=== PATIENT | female | born 1995 | race Hispanic/Latino ===

== ENCOUNTER 2018-06-28 18:04 | Emergency (ER) | payer OTHER ==
[~2018-06-28] VITALS: Ht 147.3 cm; Wt 44.5 kg
--- OUTSIDE RECORDS SUMMARY | 2018-06-28 18:07 | XMS REPORT | Clinical Summary ---
Author Author [facility] Address Unknown Phone Unavailable Care Team Providers Care Cane Piler Name Role Phone Joycelyn Olsen PCP Allergies Comments Active Allergy Reactions Severity Noted Date Fosphenytoin Hives 11/29/2016 Dexamethasone Rash Low 11/29/2016 Cephalexin Rash Low 11/29/2016 Medications No known medications Active Problems Problem Noted Date Observed seizure-like activity 11/28/2016 Family History Medical History Relation Name Comments Hypertension Maternal Grandfather Hyperlipidemia Maternal Grandmother Hypertension Mother Relation Name Status Comments Maternal Grandfather Maternal Grandmother Mother Social History Date Tobacco Use Types Packs/Day Years Used Never Smoker Alcohol Use Drinks/Week oz/Week Comments No Sex Assigned at Date Recorded Not on file Industry Job Start Date Occupation Not on file Not on file Not on file Travel End Travel History Travel Start No recent travel history available. Last Filed Vital Signs Not on file Plan of Treatment Health Maintenance Due Date Last Done Comments CHLAMYDIA SCREENING 2013 MENINGOCOCCAL VACCINE (1 2013 - 2-dose series) INFLUENZA VACCINE 02/27/2018 CERVICAL CANCER SCREENING 2018 HEPATITIS B VACCINES Aged Out No longer eligible based on patient's age to complete this topic IPV VACCINES Aged Out No longer eligible based on patient's age to complete this topic Results Not on fileafter 06/27/2017 Insurance Payer Benefit Subscriber ID Type Phone Address Plan / Group [facility] xxxxxxxxx HMO/PPO THCARE CHOICE/CHO ICE + Advance Directives Patient has advance care planning documents on file. For more information, govind gastelum contact: Tyrese West [address] [place] [address]
--- OUTSIDE RECORDS SUMMARY | 2018-06-28 18:07 | XMS REPORT | Summary of Care ---
Author Author [facility] Organization [facility] Address Unknown Phone Unavailable Encounter [facility](CHELSEA) [phone] Date(s): 09/10/16 - 09/11/[address] [facility] [address] [place] [address]- Discharge Diagnosis: Seizure disorder Discharge Disposition: Home or Self Care Attending Physician: Evert Redd DO Vital Signs 1 2 3 Most recent to oldest [Reference Range]: 160.02 cm (09/10/16 10:45 PM) Height 98.0 DegF (09/11/16 2:00 AM) 98.9 DegF (09/10/16 10:45 PM) Temperature Oral [96.4-99.1 DegF] 98/55 mmHg (09/11/16 2:00 AM) 116/61 mmHg (09/11/16 1:00 AM) 129/79 mmHg (09/11/16 12:00 AM) Blood Pressure [90-140/60-90 mmHg] 17 BRMIN (09/11/16 2:00 AM) 20 BRMIN (09/11/16 1:00 AM) 14 BRMIN (09/11/16 12:00 AM) Respiratory Rate [14-20 BRMIN] 118 bpm *HI* (09/10/16 10:45 PM) Peripheral Pulse Rate [60-100 bpm] 54.545 kg (09/10/16 10:45 PM) Weight 21.3 m2 (09/10/16 10:45 PM) Body Mass Index Problem List Condition Effective Dates Status Health Status Informant Anxiety(Confirmed) Resolved Headache(Confirmed) 2013 Resolved Seizure(Confirmed) 08/10/16 Active Allergies, Adverse Reactions, Alerts Substance Reaction Severity Status Keflex Rash Active Medications Ativan 1 mg, 0.5 mL, Route: IVP, Drug form: INJ, ONCE, Dosing Weight 54.545, kg, Priori ty: STAT, Start date: 09/10/16 23:09:00 DIRECTOR OF PRODUCT DEVELOPMENT, Stop date: 09/10/16 23:09:00 DIRECTOR OF PRODUCT DEVELOPMENT Notes: (Same as: Ativan) Start Date: 09/10/16 Stop Date: 09/10/16 Status: Completed Saline Flush 0.9% 10 mL, Route: IVP, Drug Form: INJ, Dosing Weight 53.136, kg, PRN, PRN Line Flush , Start date: 09/10/16 23:08:00 DIRECTOR OF PRODUCT DEVELOPMENT, Duration: 30 day, Stop date: 10/11/16 0:07: 00 CDT Notes: (Same as: BD Posiflush) Start Date: 09/10/16 Stop Date: 09/11/16 Status: Discontinued Sodium Chloride 0.9% (Bolus) IV 1,000 mL, 1,000 ml/hr, Infuse Over: 1 hr, Route: IV, 1,000, Drug form: INJ, ONCE , Priority: STAT, Dosing Weight 53.136 kg, Start date: 09/10/16 23:08:00 DIRECTOR OF PRODUCT DEVELOPMENT, Du ration: 1 doses or times, Stop date: 09/10/16 23:08:00 DIRECTOR OF PRODUCT DEVELOPMENT Start Date: 09/10/16 Stop Date: 09/10/16 Status: Completed Results ELECTROLYTES Most recent to 1 oldest [Reference Range]: Sodium Lvl [135-145 140 mEq/L mEq/L] (09/10/16 11:16 PM) Potassium Lvl 3.4 mEq/L [3.5-5.1 mEq/L] *LOW* (09/10/16 11:16 PM) Chloride Lvl [95-109 105 mEq/L mEq/L] (09/10/16 11:16 PM) CO2 [24-32 mEq/L] 25 mEq/L (09/10/16 11:16 PM) AGAP [10.0-20.0 13.4 mEq/L mEq/L] (09/10/16 11:16 PM) CHEM PANEL Most recent to 1 oldest [Reference Range]: Creatinine Lvl 0.63 mg/dL [0.50-1.40 mg/dL] (09/10/16 11:16 PM) eGFR 130 mL/min/1.73m2 1 *NA* (09/10/1616 PM) BUN [7-22 mg/dL] 13 mg/dL (09/10/1616 PM) B/C Ratio [6-25] 21 (09/10/1616 PM) Glucose Lvl [70-99 101 mg/dL mg/dL] *HI* (09/10/16:16 PM) Total Protein 6.8 g/dL [6.4-8.4 g/dL] (09/10/16 PM) Albumin Lvl [3.5-5.0 3.5 g/dL g/dL] (09/10/1616 PM) Globulin [2.7-4.2 3.3 g/dL g/dL] (09/10/16 PM) A/G Ratio [0.7-1.6] 1.1 (09/10/16 PM) Calcium Lvl 8.6 mg/dL [8.5-10.5 mg/dL] (09/10/16 PM) ALT [0-65 unit/L] 17 unit/L (09/10/16 PM) AST [0-37 unit/L] 16 unit/L (09/10/16 PM) Alk Phos [39-136 65 unit/L unit/L] (09/10/1616 PM) Bili Total [0.2-1.3 0.2 mg/dL mg/dL] (09/10/16:16 PM) Ammonia [<=45.0 30.0 uMol/L uMol/L] (09/10/1616 PM) 1Result Comment: The eGFR is calculated using the CKD-EPI formula. In most young, healthy individuals the eGFR will be >90 mL/min/1.73m2. The eGFR declines with age. An eGFR of 60-89 may be normal in some populations, particularly the elderly, for whom the CKD-EPI formula has not been extensively validated. Use of the eGFR is not recommended in the following populations: Individuals with unstable creatinine concentrations, including patients and those with serious co-morbid conditions. Patients with extremes in muscle mass or diet. The data above are obtained from the National Kidney Disease Education Program ( NKDEP) which additionally recommends that when the eGFR is used in patients with extremes of body mass index for purposes of drug dosing, the eGFR should be mul tiplied by the estimated BMI. CARDIAC ENZYMES Most recent to 1 oldest [Reference Range]: Total CK [12-191 102 unit/L unit/L] (09/10/16 11:16 PM) TOXICOLOGY Most recent to 1 oldest [Reference Range]: Acetaminoph Lvl <2 ug/ml [10-20 ug/ml] *LOW* (09/10/16 11:16 PM) Carbamaz Lvl <0.5 ug/ml [4.0-12.0 ug/ml] *LOW* (09/10/16 11:16 PM) Phenytoin Total <0.4 ug/ml [10.0-20.0 ug/ml] *LOW* (09/10/16 11:16 PM) Valproic Acid Lvl <3 ug/ml [50-100 ug/ml] *LOW* (09/10/16:16 PM) Salicylate Lvl <1.7 mg/dL [0.0-30.0 mg/dL] (09/10/16 11:16 PM) Etoh (%) <.003 % *NA* (09/10/16 11:16 PM) Ethanol Lvl <3 mg/dL *NA* (09/10/16:16 PM) ENDOCRINOLOGY Most recent to 1 oldest [Reference Range]: S Preg [Negative] Negative *NA* (09/10/16 11:16 PM) HEMATOLOGY Most recent to 1 oldest [Reference Range]: WBC [3.7-10.4 K/CMM] 5.5 K/CMM (09/10/16 11:16 PM) RBC [4.20-5.40 4.06 M/CMM M/CMM] *LOW* (09/10/16 11:16 PM) Hgb [12.0-16.0 g/dL] 11.9 g/dL *LOW* (09/10/16 11:16 PM) Hct [36.0-48.0 %] 34.0 % *LOW* (09/10/16 11:16 PM) MCV [80.0-98.0 fL] 83.7 fL (09/10/16 11:16 PM) MCH [27.0-31.0 pg] 29.3 pg (09/10/16 11:16 PM) MCHC [32.0-36.0 35.0 g/dL g/dL] (09/10/16 11:16 PM) RDW [11.5-14.5 %] 12.8 % (09/10/16 11:16 PM) Platelet [133-450 276 K/CMM K/CMM] (09/10/16 11:16 PM) MPV [7.4-10.4 fL] 7.2 fL *LOW* (09/10/16 11:16 PM) Segs [45.0-75.0 %] 48.0 % (09/10/16 11:16 PM) Lymphocytes 34.1 % [20.0-40.0 %] (09/10/16 11:16 PM) Monocytes [2.0-12.0 12.2 % %] *HI* (09/10/16:16 PM) Eosinophils [0.0-4.0 5.0 % %] *HI* (09/10/16 11:16 PM) Basophils [0.0-1.0 0.7 % %] (09/10/16 11:16 PM) Segs-Bands # 2.7 K/CMM [1.5-8.1 K/CMM] (09/10/16 11:16 PM) Lymphocytes # 1.9 K/CMM [1.0-5.5 K/CMM] (09/10/16 11:16 PM) Monocytes # [0.0-0.8 0.7 K/CMM K/CMM] (09/10/16 11:16 PM) Eosinophils # 0.3 K/CMM [0.0-0.5 K/CMM] (09/10/16 11:16 PM) Immunizations Not Given Vaccine Date Status Refusal Reason influenza virus vaccine, inactivated1 08/12/16 Not Given Patient Refuses 1Result Comment: pt stated does not want to be stuck Procedures Procedure Date Related Diagnosis Body Site Tonsillectomy 1999 Social History Social History Type Response Substance Abuse Use: None. Alcohol Current, Frequency: 1-2 times per year. 1.00 Drinks/Episode maximum.1 Smoking Status Never smoker; Exposure to Tobacco Smoke None; Cigarette Smoking Last 365 Days No; Reg Smoking Cessation Counseling No 1only special events (weddings, etc) Assessment and Plan No data available for this section
--- OUTSIDE RECORDS SUMMARY | 2018-06-28 18:07 | XMS REPORT | Continuity of Care Document ---
Author Author Jignesh enriquez [facility] [place] Interface Address Unknown Phone Unavailable Problems Problem Status Onset Date Classification Date Reported Comments Source Tuberculosis screening 05/09/2018 Diagnosis 05/09/2018 [facility] Tuberculosis Screening 05/09/2018 Problem 05/09/2018 [facility] UNCONTROLLED SEIZURES Active 05/07/2018 [facility] Acute bronchitis 04/29/2018 Diagnosis 05/09/2018 [facility] Adult health examination 01/19/2018 Diagnosis 01/19/2018 [facility] Urinary symptoms 12/10/2017 Diagnosis 12/10/2017 [facility] Urinary Symptoms 12/10/2017 Problem 04/29/2018 [facility] High antibody titer 11/14/2017 Diagnosis 12/10/2017 [facility] Acute bronchitis due to other specified organisms 11/02/2017 01/31/2018 [facility] J20.8 Active 10/25/2017 [facility] Encounter for supervision of normal , unspecified, first trimester 08/16/2017 11/16/2017 [facility] DX: 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, BOTH Active 06/05/2017 [facility] Discharge Diagnosis: Numbness and tingling 04/02/2017 04/05/2017 [facility] Discharge Diagnosis: Blurry vision, bilateral 04/02/2017 04/05/2017 [facility] EYE PAIN/ NECK PAIN Active 04/01/2017 [facility] R55 Active 01/02/2017 [facility] Discharge Diagnosis: Seizure disorder 09/11/2016 09/14/2016 [facility] SEIZURE Active 09/10/2016 [facility] Seizure Active 08/10/2016 Problem 12/07/2017 [facility], [facility] Seizure Active 08/10/2016 Problem 01/31/2018 [facility] Seizure Active 08/10/2016 Problem 11/16/2017 [facility], [facility] Headache Resolved 07/30/2013 Problem 12/07/2017 [facility], [facility] Headache Resolved 07/30/2013 Problem 01/31/2018 [facility] Headache Resolved 07/30/2013 Problem 11/16/2017 [facility], [facility] Anxiety Resolved Problem 12/07/2017 [facility], [facility] Anxiety Resolved Problem 01/31/2018 [facility] Anxiety Resolved Problem 11/16/2017 [facility], [facility] Migraine, unspecified, not intractable, without status migrainosus 12/07/2017 [facility] Cerebral cysts 12/07/2017 [facility] Unspecified convulsions 12/07/2017 [facility] Medications Medication Details Route Status Patient Instructions Ordering Provider Order Date Source Ibuprofen 400 mg, 1 tab, Route: PO, Drug form: TAB, ONCE, Dosing Weight 52.273, kg, Priority: STAT, Start date: 04/01/17 23:40:00 CDT, Stop date: 04/01/17 23:40:00 CDTNotes: (Same as: Motrin) "Do Not Crush" Give with food. No Longer Active 04/02/2017 [facility] Ativan 1 mg, 0.5 mL, Route: IVP, Drug form: INJ, ONCE, Dosing Weight 54.545, kg, Priority: STAT, Start date: 09/10/16 23:09:00 ENGAGEMENT EXECUTIVE, Stop date: 09/10/16 23:09:00 CSTNotes: (Same as: Ativan) Inactive 09/11/2016 [facility] Saline Flush 0.9% 10 mL, Route: IVP, Drug Form: INJ, Dosing Weight 53.136, kg, PRN, PRN Line Flush, Start date: 09/10/16 23:08:00 ENGAGEMENT EXECUTIVE, Duration: 30 day, Stop date: 10/11/16 0:07:00 CDTNotes: (Same as: BD Posiflush) No Longer Active 09/11/2016 [facility] Sodium Chloride 0.154 MEQ/ML Injectable Solution 1,000 mL, 1,000 ml/hr, Infuse Over: 1 hr, Route: IV, 1,000, Drug form: INJ, ONCE, Priority: STAT, Dosing Weight 53.136 kg, Start date: 09/10/16 23:08:00 ENGAGEMENT EXECUTIVE, Duration: 1 doses or times, Stop date: 09/10/16 23:08:00 ENGAGEMENT EXECUTIVE Inactive 09/11/2016 [facility] Active [facility] Fludrocortisone 0.1 MG Oral Tablet fludrocortisone 0.1 mg tablet Take 1 tablet twice a day by oral route. Active [facility] Levetiracetam 250 MG Oral Tablet levetiracetam 250 mg tablet Active [facility] NITROFURANTOIN, MACROCRYSTALS 25 MG / Nitrofurantoin, Monohydrate 75 MG Oral Capsule [Macrobid] Macrobid 100 mg capsule Take 1 capsule every 12 hours by oral route as directed for 5 days. Active [facility] Etonogestrel 68 MG Drug Implant [Nexplanon] Nexplanon 68 mg subdermal implant Active [facility] 24 HR Propranolol Hydrochloride 60 MG Extended Release Oral Capsule propranolol ER 60 mg capsule,24 hr,extended release TK 1 C PO D Active [facility] Azithromycin 250 MG Oral Tablet azithromycin 250 mg tablet TAKE 2 TABLETS (500 MG) BY ORAL ROUTE ONCE DAILY FOR 1 DAY THEN 1 TABLET (250 MG) BY ORAL ROUTE ONCE DAILY FOR 4 DAYS Active [facility] Brompheniramine Maleate 0.4 MG/ML / Dextromethorphan Hydrobromide 2 MG/ML / Pseudoephedrine Hydrochloride 6 MG/ML Oral Solution [Bromfed DM] Bromfed DM 2 mg-30 mg-10 mg/5 mL syrup Take 10 mL every 6 hours by oral route as needed. Active [facility] [id number] 0.3 ML Epinephrine 1 MG/ML Auto-Injector epinephrine 0.3 mg/0.3 mL injection, auto-injector Active [facility] norethindrone 1 mg-e. estradiol 20 mcg (24)-iron 75 mg (4) chew tablet norethindrone 1 mg-e. estradiol 20 mcg (24)-iron 75 mg (4) chew tablet GLASS TECHNICIAN/INSTALLER 1 T PO QD Active [facility] Ondansetron 4 MG Oral Tablet ondansetron HCl 4 mg tablet Active [facility] Prednisone 20 MG Oral Tablet prednisone 20 mg tablet Take 1 tablet twice a day by oral route with meals for 5 days. Active [facility] Tamsulosin hydrochloride 0.4 MG Oral Capsule tamsulosin 0.4 mg capsule Active [facility] tramadol hydrochloride 50 MG Oral Tablet tramadol 50 mg tablet Active [facility] Brompheniramine Maleate 0.4 MG/ML / Dextromethorphan Hydrobromide 2 MG/ML / Pseudoephedrine Hydrochloride 6 MG/ML Oral Solution [id number] 2 mg-30 mg-10 mg/5 mL syrup Take 10 mL every 6 hours by oral route as needed. Active [facility] Levetiracetam 750 MG Oral Tablet levetiracetam 750 mg tablet Active [facility] Purified Protein Derivative of Tuberculin 50 UNT/ML Injectable Solution [Tubersol] Tubersol 5 tub. unit/0.1 mL intradermal injection solution Inject 0.1 mL by intradermal route. Active [facility] Allergies, Adverse Reactions, Alerts Substance Category Reaction Severity Reaction type Status Date Reported Comments Source Decadron Rash Severe Allergy to substance 01/19/2018 [facility] Keflex Assertion Rash Drug allergy Active [facility] dexamethasone Assertion Drug allergy Active [facility] Immunizations Immunization Date Given Site Status Last Updated Comments Source influenza, unspecified formulation 10/28/2017 [facility], inactivated<sup>1</sup> 08/12/2016 Not Given [facility], [facility] [place] influenza virus vaccine, inactivated<sup>1</sup> 08/12/2016 Not Given [facility] influenza virus vaccine, inactivated<sup>1</sup> 08/12/2016 Not Given [facility] meningococcal, unspecified formulation 07/30/2015 completed [facility] Tdap 07/30/2009 completed [facility] Results Order Name Results Value Reference Range Date Interpretation Comments Source Influenza A negative 05/09/2018 [facility] Influenza B negative 05/09/2018 [facility] Chest 2 views DX Chest 2 views DX EXAM: XR CHEST 2 VIEWS DATE: 05/07/2018 9:01 PM CDT INDICATION: Follow-up previous chest x-ray COMPARISON: Chest x-ray on 05/07/2018 TECHNIQUE: PA and lateral chest radiographs. Exam quality limited by patient position/inability to move. FINDINGS: Lines, tubes and hardware: None. Lungs and pleura: The lungs are clear. No pleural effusion or pneumothorax. Heart and mediastinum: The heart is normal for technique. The mediastinal contours are normal. Pulmonary vascularity is normal. Bones: No acute abnormality. IMPRESSION: 1. The heart size is normal for technique. 2. No acute cardiopulmonary abnormality. 05/07/2018 - - This report was dictated by a Transmission Superintendent/Fellow. I have personally reviewed the images as well as the Resident's interpretation and agree with the findings. Read by: Sunshine Felipe MD Resident: Sunshine Felipe MD Dictated Date/time: 05/08/18 09:29 Electronically Signed by: Antonia Berrios MD 05/08/18 11:16 FINAL REPORT [facility] Chest 1view DX Chest 1view DX EXAM: XR CHEST 1 VIEW DATE: 05/07/2018 6:42 PM CDT INDICATION: - eval for infxn COMPARISON: 10/25/2017 TECHNIQUE: AP chest FINDINGS: Low lung volumes. Vascular crowding and interstitial prominence is likely due to low lung volumes. No pulmonary or pleural-based abnormality is identified. The heart size is spuriously enlarged due to low lung volumes. No acute bony abnormality is identified. IMPRESSION: 1. No focal consolidation or pneumothorax. 2. Lower lung volumes can result in spurious enlargement of the heart with interstitial and vascular prominence. PA and lateral views are recommended when feasible. 05/07/2018 - - Read by: Cipriano Mancia MD Dictated Date/time: 05/07/18 20:48 Electronically Signed by: Cipriano Mancia MD 05/07/18 20:50 FINAL REPORT [facility] Influenza A negative 04/29/2018 [facility] Influenza B negative 04/29/2018 [facility] Urinalysis macro (dipstick) panel - Urine COLOR : Yellow 12/10/2017 [facility] Urinalysis macro (dipstick) panel - Urine CLARITY : Clear 12/10/2017 [facility] Urinalysis macro (dipstick) panel - Urine LEUKOCYTES : Negative 12/10/2017 [facility] Urinalysis macro (dipstick) panel - Urine NITRITES : Negative 12/10/2017 [facility] Urinalysis macro (dipstick) panel - Urine UROBILINOGEN : Normal 12/10/2017 [facility] Urinalysis macro (dipstick) panel - Urine PROTEIN : Negative 12/10/2017 [facility] Urinalysis macro (dipstick) panel - Urine pH : 5.5 12/10/2017 [facility] Urinalysis macro (dipstick) panel - Urine BLOOD : Negative 12/10/2017 [facility] Urinalysis macro (dipstick) panel - Urine SPECIFIC GRAVITY : 1.020 12/10/2017 [facility] Urinalysis macro (dipstick) panel - Urine KETONES : Negative 12/10/2017 [facility] Urinalysis macro (dipstick) panel - Urine BILIRUBIN : Negative 12/10/2017 [facility] Urinalysis macro (dipstick) panel - Urine GLUCOSE Negative 12/10/2017 [facility] Brain w/wo contrast MRI Brain w/wo contrast MRI Exam: MRI brain without and with contrast. INDICATION: Headache, migraine, atypical seizure, brain cyst. COMPARISON: 06/27/2017. TECHNIQUE: Multiecho multiplanar MR sequences of the brain are obtained pre and post administration of 10 mL Dotarem. Discussion: No restricted diffusion. Stable focus of T2 FLAIR hyperintense signal extending from the right middle frontal gyrus to the right lateral ventricle. Architectural distortion of the gaviria-white interface of the associated right frontal lobe is evident, unchanged. No new signal changes are identified in the brain parenchyma. Hippocampal formations are normal in size, signal and contour. Arachnoid cyst in the left posterior fossa causing mild mass effect upon the cisternal segments of the left 7th and 8th cranial nerves is unchanged. No abnormal enhancement of the brain parenchyma or leptomeninges is detected. IMPRESSION: Signal abnormality in the right frontal white matter extending to the overlying cortex is unchanged without enhancement. Findings favor focal dysplasia. Stable arachnoid cyst in the left posterior fossa. 11/28/2017 - - Read by: Nicki Cid MD Dictated Date/time: 11/29/17 07:35 Electronically Signed by: Nicki Cid MD 11/29/17 07:56 FINAL REPORT [facility] Hepatitis C virus Ab Signal/Cutoff in Serum or Plasma by Immunoassay Hepatitis C virus Ab Signal/Cutoff in Serum or Plasma by Immunoassay 0.1 s/co_ratio 0.0 - 0.9 11/15/2017 [facility] Chest 2 views DX Chest 2 views DX Clinical Indication: Shortness of breath , hypoxia Comparison: 09/10/2016 FINDINGS: PA and lateral views of the chest are performed. Heart size is within normal limits. Mediastinal contours are unremarkable. Lungs are clear without infiltrate or mass. No pleural effusion or pneumothorax. No acute osseous abnormality. IMPRESSION: 1. No radiographic evidence for acute process in the chest. SL: [id number] 10/25/2017 - - Read by: Asa Beebe MD Dictated Date/time: 10/25/17 16:58 Electronically Signed by: Asa Beebe MD 10/25/17 16:59 FINAL REPORT [facility] Preg < 14wks Single gest w Transvag US Preg < 14wks Single gest w Transvag US EXAM: US PELVIS TRANSABDOMINAL EXAM: US PELVIS TRANSVAGINAL DATE: 08/10/2017 2:09 PM ENGAGEMENT EXECUTIVE INDICATION: - O26.899 Other specified related conditions, unspecified trimester,Z34.90 Encounter for supervision of normal , unspecified, unspecified trimester,. Abdominal cramping and vaginal discharge for the past one week. History of endometriosis with laparoscopy. ADDITIONAL INFORMATION: LMP: 06/29/2017; : Yes. COMPARISON: None. TECHNIQUE: Multiplanar grayscale and color Doppler ultrasound of the pelvis were obtained transabdominally through a distended urinary bladder followed by transvaginal examination postvoid. FINDINGS: Uterus: Orientation: Anteverted Size: 7.1 x 5.1 x 5.8 cm Masses: None. Cervix: Closed. Gestation: Single. Last menstrual period of 06/29/2017 corresponds to 6 weeks 0 days. Mean gestational sac diameter: 0.60 cm corresponds to 5 weeks 1 days. [place]-rump length (CRL): No pole visualized. Yolk sac: None Subchorionic hemorrhage: None. Right ovary: Size: 3.5 x 2.8 x 2.8 cm Cysts: Within the inferior portion of the right ovary, there is a complex cystic 2.5 x 1.9 x 2.1 lesion containing hypoechoic components and a small central anechoic and more hypoechoic component. Complex free fluid with scattered speckled echoes within it is seen adjacent to this lesion. No internal vascularity or "ring of fire" is seen. Masses: None. Left ovary: Size: 3.0 x 1.6 x 1.8 cm Cysts: None. Masses: None. Free fluid: Small amount simple free fluid in the retrouterine cul-de-sac. Mildly complex free fluid adjacent to the right ovarian lesion described above.. Other findings: None. IMPRESSION: 1. Single intrauterine suspected gestational sac with AUA of 5 weeks 1 days based on mean sac diameter. 2. Dates are minimally discordant with EGA by LMP. 3. Complex cystic lesion in the right ovary with adjacent mildly complex free fluid. Most likely, this lesion represents a hemorrhagic ovarian cyst, including the possibility of a hemorrhagic corpus luteum cyst which is slightly atypical in appearance. Less likely, this could represent an ectopic . 4. Small amount of complex fluid adjacent to the left ovarian lesion, likely small amount of hemoperitoneum either from rupture of a hemorrhagic cyst or, less likely, from bleeding of a small ovarian ectopic . Recommendation: Urgent COMMERCIAL ADMINISTRATOR consultation/follow-up. Serial ultrasounds and beta hCG should be performed to exclude the possibility of ectopic and to ensure a normal viable intrauterine . Findings were discussed with LEOBARDO Carreno, by telephone on 08/10/2017 at 1500 hours. The patient will return to her office for further evaluation and for immediate referral to the patient's molding line assistant for further evaluation and treatment. The patient was provided a copy of the imaging exam on disc as well. Reference: Delia PM et al. Diagnostic Criteria for Nonviable Early in the First Trimester. N Engl J Med 2013; 369: 1443-51 08/10/2017 - - Read by: Anant Malik MD Dictated Date/time: 08/10/17 15:07 Electronically Signed by: Anant Malik MD 08/10/17 15:16 FINAL REPORT [facility] eGFR 132 mL/min/1.73m2 06/27/2017 Result Comment: The eGFR is calculated using the [...] from the National Kidney Disease Education Program (NKDEP) which additionally recommends that when the eGFR is used in patients with extremes of body mass index for purposes of drug dosing, the eGFR should be multiplied by the estimated BMI. [facility] Creatinine 0.6 mg/dL 0.5 - 1.4 06/27/2017 [facility] Brain w/wo contrast MRI Brain w/wo contrast MRI Addendum: This study was reviewed and findings discussed with Dr. Nebwy. There is a 11 x 11 mm subtle T2 and FLAIR hyperintense signal abnormality in the right frontal subcortical white matter. The abnormality has a triangular configuration with the base at the gaviria-white junction and apex at the surface of the lateral ventricles. There is slight blunting of the gaviria-white interface seen on axial FLAIR image 18. 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 There is a 13 x 9 mm arachnoid cyst in the left CP angle without change compared to study from 2016. Patient Name: MISHA ALICIA : 1995; Age: 22 years y/o Female MR: [id number] Study: Brain w/wo contrast MRI 06/27/2017 4:19 PM ENGAGEMENT EXECUTIVE Ordering Physician: Margo Newby MD Clinical Indication: Disorder of the autonomic nervous system. Anoxic seizures. Patient currently experiencing complete left sided numbness. Last seizure 2 weeks ago. 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 Multiple previous MRI, CT.; Comparison: None TECHNIQUE: Multiplanar pre- and post-gadolinium contrast-enhanced MRI of the brain is performed. Contrast: 11 cc of gadolinium was administered. FINDINGS: The brain parenchyma is unremarkable. There is no evidence of acute intracranial hemorrhage, acute or subacute infarct, mass, focal edema, midline shift or extra-axial fluid collection. The ventricles and basilar cisterns are unremarkable. There is no abnormal meningeal or parenchymal enhancement. The craniocervical junction and midline structures are unremarkable. The central intracranial flow voids are maintained. Mild mucosal thickening is seen in the maxillary sinuses. IMPRESSION: 1. No evidence of acute intracranial process. 2. Mild mucosal thickening is seen in the maxillary sinuses. 06/27/2017 - - Read by: Aby Galeana Dictated Date/time: 08/16/17 10:32 Electronically Signed by: Aby Galeana 08/16/17 10:48 FINAL REPORT - - Read by: Aby Galeana Dictated Date/time: 06/28/17 08:51 Electronically Signed by: Aby Galeana 06/28/17 09:13 FINAL REPORT [facility] Brain wo contrast MRA Brain wo contrast MRA Brain wo contrast MRA CLINICAL HX: Tech:Jc Gregorio - Unqualified vision loss. Anoxic seizures. Patient currently experiencing complete left sided numbness. Last seizure 2 weeks ago. 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 Multiple previous MRI, CT.; COMPARISON: 08/14/2016 TECHNIQUE: 3-D [id number] images of the k[place] of [place] were performed. Images were reformatted in the sagittal and coronal projections. FINDINGS: The petrous, cavernous, and supraclinoid portions of the carotids bilaterally demonstrate normal signal. The A1, A2, M1 and M2 segments of the anterior and middle cerebral arteries do not demonstrate any focal loss of signal to suggest any significant stenosis. Right P-comm is noted. No gross aneurysm is visualized in the anterior circulation. Both vertebral arteries, basilar artery, RELATIONS DIRECTOR, and SCA demonstrate normal signal. Both PICA are well-visualized and demonstrate normal morphology. No gross aneurysm is identified in the posterior circulation. IMPRESSION: No significant abnormality is noted on the MRA of kiana of [place]. SL: [id number] 06/27/2017 - - Read by: Lawson Daly MD Dictated Date/time: 06/28/17 07:20 Electronically Signed by: Lawson Daly MD 06/28/17 07:28 FINAL REPORT [facility] ELECTROLYTES AGAP 13.2 meq/L 10.0 - 20.0 04/02/2017 [facility] ELECTROLYTES eGFR 133 mL/min/1.73m2 04/02/2017 Result Comment: The eGFR is calculated using the [...] from the National Kidney Disease Education Program (NKDEP) which additionally recommends that when the eGFR is used in patients with extremes of body mass index for purposes of drug dosing, the eGFR should be multiplied by the estimated BMI. [facility] ELECTROLYTES Glucose Lvl 94 mg/dL 70 - 99 04/02/2017 [facility] ELECTROLYTES Creatinine Lvl 0.58 mg/dL 0.50 - 1.40 04/02/2017 [facility] ELECTROLYTES BUN 22 mg/dL 7 - 22 04/02/2017 [facility] ELECTROLYTES Calcium Lvl 9.3 mg/dL 8.5 - 10.5 04/02/2017 [facility] ELECTROLYTES CO2 25 meq/L 24 - 32 04/02/2017 [facility] ELECTROLYTES Sodium Lvl 140 meq/L 135 - 145 04/02/2017 [facility] ELECTROLYTES Potassium Lvl 4.2 meq/L 3.5 - 5.1 04/02/2017 [facility] ELECTROLYTES Chloride Lvl 106 meq/L 95 - 109 04/02/2017 [facility] HEMATOLOGY Lymphocytes 34.2 % 20.0 - 40.0 04/02/2017 [facility] HEMATOLOGY Segs 51.4 % 45.0 - 75.0 04/02/2017 [facility] HEMATOLOGY Lymphocytes # 3.0 K/CMM 1.0 - 5.5 04/02/2017 [facility] HEMATOLOGY Monocytes # 0.8 K/CMM 0.0 - 0.8 04/02/2017 [facility] HEMATOLOGY Eosinophils # 0.4 K/CMM 0.0 - 0.5 04/02/2017 [facility] HEMATOLOGY Eosinophils 4.8 % 0.0 - 4.0 04/02/2017 [facility] HEMATOLOGY Monocytes 8.8 % 2.0 - 12.0 04/02/2017 [facility] HEMATOLOGY Basophils 0.8 % 0.0 - 1.0 04/02/2017 [facility] HEMATOLOGY Segs-Bands # 4.5 K/CMM 1.5 - 8.1 04/02/2017 [facility] HEMATOLOGY Basophils # 0.1 K/CMM 0.0 - 0.2 04/02/2017 [facility] HEMATOLOGY WBC 8.8 K/CMM 3.7 - 10.4 04/02/2017 [facility] HEMATOLOGY RBC 4.54 M/CMM 4.20 - 5.40 04/02/2017 [facility] HEMATOLOGY Hgb 13.1 g/dL 12.0 - 16.0 04/02/2017 [facility] HEMATOLOGY Hct 38.7 % 36.0 - 48.0 04/02/2017 [facility] HEMATOLOGY MCV 85.2 fL 80.0 - 98.0 04/02/2017 [facility] HEMATOLOGY MCH 28.7 pg 27.0 - 31.0 04/02/2017 [facility] HEMATOLOGY Platelet 288 K/CMM 133 - 450 04/02/2017 [facility] HEMATOLOGY MCHC 33.8 g/dL 32.0 - 36.0 04/02/2017 [facility] HEMATOLOGY RDW 13.0 % 11.5 - 14.5 04/02/2017 [facility] HEMATOLOGY MPV 8.0 fL 7.4 - 10.4 04/02/2017 [facility] Brain wo contrast CT Brain wo contrast CT EXAM: CT BRAIN WITHOUT CONTRAST DATE: 04/02/2017 4:41 AM CDT INDICATION: Blurry vision, history of arachnoid cyst COMPARISON: Noncontrast brain CT 09/11/2016, brain MR 08/14/2016 TECHNIQUE: Axial CT images of the brain were obtained. Sagittal and coronal reformats. IV contrast: None. DLP: 72 mGy-cm FINDINGS: There is no edema, hemorrhage, midline shift, hydrocephalus or other acute intracranial abnormality. Unchanged, mild prominence of CSF space at the left cerebellopontine angle corresponding with previously seen arachnoid cyst. There is no fracture of the skull, skull base, or visible facial bones. IMPRESSION: No acute intracranial abnormality or change compared to 09/11/2016. 04/02/2017 - - This report was dictated by a Transmission Superintendent/Fellow. I have personally reviewed the images as well as the Resident's interpretation and agree with the findings. Read by: Jeremiah Olson MD Resident: Jeremiah Olson MD Dictated Date/time: 04/02/17 05:02 Electronically Signed by: Hernandez Laura MD 04/02/17 11:18 FINAL REPORT [facility] CARDIAC ENZYMES Total CK 102 unit/L 12 - 191 09/11/2016 [facility] CHEM PANEL A/G Ratio 1.1 0.7 - 1.6 09/11/2016 [facility] CHEM PANEL AGAP 13.4 meq/L 10.0 - 20.0 09/11/2016 [facility] CHEM PANEL B/C Ratio 21 6 - 25 09/11/2016 [facility] CHEM PANEL Globulin 3.3 g/dL 2.7 - 4.2 09/11/2016 [facility] CHEM PANEL eGFR 130 mL/min/1.73m2 09/11/2016 Result Comment: The eGFR is calculated using the [...] from the National Kidney Disease Education Program (NKDEP) which additionally recommends that when the eGFR is used in patients with extremes of body mass index for purposes of drug dosing, the eGFR should be multiplied by the estimated BMI. [facility] CHEM PANEL Albumin Lvl 3.5 g/dL 3.5 - 5.0 09/11/2016 [facility] CHEM PANEL Total Protein 6.8 g/dL 6.4 - 8.4 09/11/2016 [facility] CHEM PANEL Calcium Lvl 8.6 mg/dL 8.5 - 10.5 09/11/2016 [facility] CHEM PANEL CO2 25 meq/L 24 - 32 09/11/2016 [facility] CHEM PANEL Chloride Lvl 105 meq/L 95 - 109 09/11/2016 [facility] CHEM PANEL Bili Total 0.2 mg/dL 0.2 - 1.3 09/11/2016 [facility] CHEM PANEL Alk Phos 65 unit/L 39 - 136 09/11/2016 [facility] CHEM PANEL AST 16 unit/L 0 - 37 09/11/2016 [facility] CHEM PANEL ALT 17 unit/L 0 - 65 09/11/2016 [facility] CHEM PANEL Creatinine Lvl 0.63 mg/dL 0.50 - 1.40 09/11/2016 [facility] CHEM PANEL Potassium Lvl 3.4 meq/L 3.5 - 5.1 09/11/2016 [facility] CHEM PANEL Sodium Lvl 140 meq/L 135 - 145 09/11/2016 [facility] CHEM PANEL Glucose Lvl 101 mg/dL 70 - 99 09/11/2016 [facility] CHEM PANEL BUN 13 mg/dL 7 - 22 09/11/2016 [facility] CHEM PANEL Ammonia 30.0 umol/L <=45.0 uMol/L 09/11/2016 [facility] ENDOCRINOLOGY S Preg Negative *NA* (09/10/16 11:16 PM) Negative 09/11/2016 [facility] HEMATOLOGY Segs-Bands # 2.7 K/CMM 1.5 - 8.1 09/11/2016 [facility] HEMATOLOGY Segs 48.0 % 45.0 - 75.0 09/11/2016 [facility] HEMATOLOGY Lymphocytes 34.1 % 20.0 - 40.0 09/11/2016 [facility] HEMATOLOGY Monocytes 12.2 % 2.0 - 12.0 09/11/2016 [facility] HEMATOLOGY Basophils 0.7 % 0.0 - 1.0 09/11/2016 [facility] HEMATOLOGY Eosinophils 5.0 % 0.0 - 4.0 09/11/2016 [facility] HEMATOLOGY Eosinophils # 0.3 K/CMM 0.0 - 0.5 09/11/2016 [facility] HEMATOLOGY Monocytes # 0.7 K/CMM 0.0 - 0.8 09/11/2016 [facility] HEMATOLOGY Lymphocytes # 1.9 K/CMM 1.0 - 5.5 09/11/2016 [facility] MPV 7.2 fL 7.4 - 10.4 09/11/2016 [facility] HEMATOLOGY Platelet 276 K/CMM 133 - 450 09/11/2016 [facility] HEMATOLOGY RDW 12.8 % 11.5 - 14.5 09/11/2016 [facility] HEMATOLOGY Hct 34.0 % 36.0 - 48.0 09/11/2016 [facility] Hgb 11.9 g/dL 12.0 - 16.0 09/11/2016 [facility] WBC 5.5 K/CMM 3.7 - 10.4 09/11/2016 [facility] RBC 4.06 M/CMM 4.20 - 5.40 09/11/2016 [facility] MCHC 35.0 g/dL 32.0 - 36.0 09/11/2016 [facility] MCH 29.3 pg 27.0 - 31.0 09/11/2016 [facility] HEMATOLOGY MCV 83.7 fL 80.0 - 98.0 09/11/2016 [facility] TOXICOLOGY Salicylate Lvl null 0.0 - 30.0 09/11/2016 [facility] TOXICOLOGY Acetaminoph Lvl null 10 - 20 09/11/2016 [facility] TOXICOLOGY Phenytoin Total null 10.0 - 20.0 09/11/2016 [facility] TOXICOLOGY Ethanol Lvl null 09/11/2016 [facility] TOXICOLOGY Etoh (%) null 09/11/2016 [facility] TOXICOLOGY Carbamaz Lvl null 4.0 - 12.0 09/11/2016 [facility] TOXICOLOGY Valproic Acid Lvl null 50 - 100 09/11/2016 [facility] Brain wo contrast CT Brain wo contrast CT Study: Brain wo contrast CT 09/11/2016 12:35 AM ENGAGEMENT EXECUTIVE Ordering Physician: Evert Redd DO Clinical Indication: Head trauma, Pt brought in by family for seizure in car on the way to hospital. Comparison: None TECHNIQUE: CT images are obtained from the foramen magnum to the vertex on a multidetector CT. Sagittal and coronal reformats are acquired. CT radiation dose DLP: 982 mGy-cm. FINDINGS: Ventricles, sulci and basal cisterns are within normal limits for age. The gaviria- white junction is intact. No encephalomalacic changes are seen. There is no evidence for intracranial mass, mass effect or extra-axial fluid collection. There is no evidence for intracranial hemorrhage. The skull is intact. Visualized paranasal sinuses are clear. Mastoid air cells are clear. Orbital structures are grossly unremarkable. IMPRESSION: Normal computed tomography scan of the brain without contrast. SL: [id number] 09/11/2016 - - Read by: Elham Ng MD Dictated Date/time: 09/11/16 01:21 Electronically Signed by: Elham Ng MD 09/11/16 01:24 FINAL REPORT [facility] Chest 1view DX Chest 1view DX EXAM: XR CHEST 1 VIEW DATE: 09/10/2016 11:24 PM ENGAGEMENT EXECUTIVE INDICATION: Chest pain. COMPARISON: None Available. TECHNIQUE: A single AP view of the chest was obtained. FINDINGS: No focal consolidation or pneumothorax is identified. The cardiomediastinal silhouette is within normal limits. The costophrenic recesses are sharp and without effusion. No acute osseous abnormality is identified. IMPRESSION: No acute cardiopulmonary abnormality. SL: [id number] 09/10/2016 - - Read by: Abraham Causey MD Dictated Date/time: 09/10/16 23:51 Electronically Signed by: Abraham Causey MD 09/10/16 23:52 FINAL REPORT [facility] Vital Signs Vital Sign Value Date Comments Source Diastolic (mm Hg) 72 04/29/2018 [facility] Height 58 04/29/2018 [facility] Systolic (mm Hg) 116 04/29/2018 [facility] Weight 117 04/29/2018 [facility] Diastolic (mm Hg) 62 01/19/2018 [facility] Height 58 01/19/2018 [facility] Systolic (mm Hg) 114 01/19/2018 [facility] Weight 117 01/19/2018 [facility] Diastolic (mm Hg) 70 12/10/2017 [facility] Height 58 12/10/2017 [facility] Systolic (mm Hg) 118 12/10/2017 [facility] Weight 117 12/10/2017 [facility] Temperature Oral (F) 98.0 F 04/02/2017 [facility] Respitory Rate 16 04/02/2017 [facility] Systolic (mm Hg) 116 04/02/2017 [facility] Diastolic (mm Hg) 84 04/02/2017 [facility] Systolic (mm Hg) 110 04/02/2017 [facility] Diastolic (mm Hg) 72 04/02/2017 [facility] Systolic (mm Hg) 109 04/02/2017 [facility] Diastolic (mm Hg) 69 04/02/2017 [facility] Respitory Rate 18 04/02/2017 [facility] Respitory Rate 18 04/02/2017 [facility] Height 147.32 cm 04/02/2017 [facility] BMI Calculated 24.09 04/02/2017 [facility] Weight 52.273 04/02/2017 [facility] Heart Rate 90 04/02/2017 [facility] Temperature Oral (F) 98.5 F 04/02/2017 [facility] BMI Calculated 24.09 01/23/2017 [facility] Height 147.32 cm 01/23/2017 [facility] Weight 52.273 01/23/2017 [facility] Temperature Oral (F) 98.0 F 09/11/2016 [facility] Systolic (mm Hg) 98 09/11/2016 [facility] Diastolic (mm Hg) 55 09/11/2016 [facility] Respitory Rate 17 09/11/2016 [facility] Systolic (mm Hg) 116 09/11/2016 [facility] Diastolic (mm Hg) 61 09/11/2016 [facility] Respitory Rate 20 09/11/2016 [facility] Respitory Rate 14 09/11/2016 [facility] Systolic (mm Hg) 129 09/11/2016 [facility] Diastolic (mm Hg) 79 09/11/2016 [facility] Weight 54.545 09/11/2016 [facility] Temperature Oral (F) 98.9 F 09/11/2016 [facility] Heart Rate 118 09/11/2016 [facility] BMI Calculated 21.3 09/11/2016 [facility] Height 160.02 cm 09/11/2016 [facility] Encounters Location Location Details Encounter Type Encounter Number Reason For Visit Attending Provider ADM Date DC Date Status Source Outpatient [id number] JAYLA TAPIA 08/29/2016 [facility] Outpatient [id number] JAYLA TAPIA 08/30/2016 [facility] Emergency [id number] Evert Randallmar 09/11/2016 09/11/2016 [facility] Outpatient [id number] JAYLA TAPIA 09/12/2016 [facility] Outpatient [id number] JAYLA TAPIA 12/06/2016 [facility] Outpatient [id number] Patricia Watt 01/23/2017 01/24/2017 [facility] [place] [facility] [id number] Margo Newby 03/12/2017 03/13/2017 [facility] Emergency [id number] Carmina Green 04/02/2017 04/02/2017 [facility] Outpatient [id number] KIRSTIN FERGUSON 04/13/2017 [facility] Outpatient [id number] Margo Newby 06/27/2017 06/28/2017 [facility] [place] [facility] [id number] Jaciel Wyatt 08/10/2017 08/11/2017 [facility] Outpatient [id number] JERRI BAPTISTE 10/25/2017 10/26/2017 [facility] [place] [facility] - [id number] DOLORES Shipley-C: [address] [place] [address], Ph. [id number] Zachery Hernandez 11/14/2017 [facility] [place] [facility] - [id number] Zachery Hernandez, TOPOGRAPHICAL ENGINEER-C: [address] [facility], [place] [address], Ph. [id number] Zachery Hernandez 11/14/2017 [facility] Outpatient [facility] [place] [facility] [id number] Margo Newby 11/28/2017 11/29/2017 [facility] [place] [facility] - [id number] Stephanie Espinozaroy, TOPOGRAPHICAL ENGINEER-C: [address], [place] [address], Ph. [id number] Stephanie Esquivel 12/10/2017 [facility] [place] [facility] - [id number]_Rthergve Shanita London, PA-C: [address], [place] [address], Ph. [id number] Shanita London 01/19/2018 [facility] [place] [facility] - [id number]_Vmyyhwfc Leoneladaryl Pedraza, TOPOGRAPHICAL ENGINEER: [address], [place] [address], Ph. [id number] Leonela Milo 04/29/2018 [facility] [place] [facility] - [id number]_Brudugww Leonelaamauri Pedraza, TOPOGRAPHICAL ENGINEER: [address], [place] [address], Ph. [id number] Leonela Milo 04/29/2018 [facility] [place] [facility] - [id number]_Awvjqsvk Leonelaamauri Pedraza, TOPOGRAPHICAL ENGINEER: [address], [place] [address], Ph. [id number] Leonela Pedraza 04/29/2018 [facility] [place] [facility] - [id number]_Djwvskih Stephanie Esquivel, TOPOGRAPHICAL ENGINEER-C: [address] [place] [address], Ph. [id number] Stephanie Esquivel 05/09/2018 [facility] Procedures Procedure Code Date Perfomer Comments Source Tonsillectomy 690183913 07/30/1999 [facility] Tonsillectomy [id number] 07/30/1999 [facility] [place] Tonsillectomy [id number] 07/30/1999 [facility] Tonsillectomy [id number] 07/30/1999 [facility] [place] Removal of Tonsils 93590 [facility] Endometrial Cryoablation [id number] [facility]
--- OUTSIDE RECORDS SUMMARY | 2018-06-28 18:07 | XMS REPORT | Summary of Care ---
Author Author [facility] Outpatient Imaging [place] Organization [facility] Outpatient [facility] [place] Address Unknown Phone Unavailable Encounter HQ Libertadr_kristin(FIN) [id number] Date(s): 11/28/17 - 11/28/17 [facility] Outpatient Imaging [place] [address] [place] [phone] Discharge Disposition: Home or Self Care Attending Physician: Margo Newby MD Vital Signs No data available for this section Problem List Condition Effective Dates Status Health Status Informant Anxiety(Confirmed) Resolved Headache(Confirmed) 2013 Resolved Seizure(Confirmed) 08/10/16 Active Allergies, Adverse Reactions, Alerts Substance Reaction Severity Status dexamethasone Active Keflex Rash Active Medications No data available for this section Results No data available for this section Immunizations Not Given Vaccine Date Status Refusal Reason influenza virus vaccine, inactivated1 08/12/16 Not Given Patient Refuses 1Result Comment: pt stated does not want to be stuck Procedures Procedure Date Related Diagnosis Body Site Status Tonsillectomy 1999 Completed Social History Social History Type Response Substance Abuse Use: None. Alcohol Current, Frequency: 1-2 times per year. 1.00 Drinks/Episode maximum.1 Smoking Status Never smoker; Exposure to Tobacco Smoke None; Cigarette Smoking Last 365 Days No; Reg Smoking Cessation Counseling No entered on: 04/13/17 1only special events (weddings, etc) Assessment and Plan No data available for this section
--- OUTSIDE RECORDS SUMMARY | 2018-06-28 18:07 | XMS REPORT | Summary of Care ---
Author Author [facility] Organization [facility] Address Unknown Phone Unavailable Encounter SUZIE Damon(CHELSEA) [id number] Date(s): 04/01/17 - 04/02/17 [facility] [address] Professional Services provided by [employer] [facility] [place] [address]- Discharge Diagnosis: Numbness and tingling Discharge Diagnosis: Blurry vision, bilateral Discharge Disposition: Home or Self Care Attending Physician: Carmina Green MD Vital Signs 1 2 3 Most recent to oldest [Reference Range]: 147.32 cm (04/01/17 9:56 PM) Height 98.0 DegF (04/02/17 12:07 PM) 98.5 DegF (04/01/17 9:56 PM) Temperature Oral [96.4-99.1 DegF] 116/84 mmHg (04/02/17 12:07 PM) 110/72 mmHg (04/02/17 5:04 AM) 109/69 mmHg (04/02/17 3:04 AM) Blood Pressure [90-140/60-90 mmHg] 16 BRMIN (04/02/17 12:07 PM) 18 BRMIN (04/02/17 1:04 AM) 18 BRMIN (04/01/17 11:55 PM) Respiratory Rate [14-20 BRMIN] 90 bpm (04/01/17 9:56 PM) Peripheral Pulse Rate [60-100 bpm] 52.273 kg (04/01/17 9:56 PM) Weight 24.09 m2 (04/01/17 9:56 PM) Body Mass Index Problem List Condition Effective Dates Status Health Status Informant Anxiety(Confirmed) Resolved Headache(Confirmed) 2013 Resolved Seizure(Confirmed) 08/10/16 Active Allergies, Adverse Reactions, Alerts Substance Reaction Severity Status dexamethasone Active Keflex Rash Active Medications ibuprofen 400 mg, 1 tab, Route: PO, Drug form: TAB, ONCE, Dosing Weight 52.273, kg, Priori ty: STAT, Start date: 04/01/17 23:40:00 CDT, Stop date: 04/01/17 23:40:00 CDT Notes: (Same as: Motrin)"Do Not Crush" Give with food. Start Date: 04/01/17 Stop Date: 04/02/17 Status: Completed Results ELECTROLYTES Most recent to 1 oldest [Reference Range]: Sodium Lvl [135-145 140 mEq/L mEq/L] (04/02/17 4:07 AM) Potassium Lvl 4.2 mEq/L [3.5-5.1 mEq/L] (04/02/17 4:07 AM) Chloride Lvl [95-109 106 mEq/L mEq/L] (04/02/17 4:07 AM) CO2 [24-32 mEq/L] 25 mEq/L (04/02/17 4:07 AM) AGAP [10.0-20.0 13.2 mEq/L mEq/L] (04/02/17 4:07 AM) CHEM PANEL Most recent to 1 oldest [Reference Range]: Creatinine Lvl 0.58 mg/dL [0.50-1.40 mg/dL] (04/02/17 4:07 AM) eGFR 133 mL/min/1.73m2 1 *NA* (04/02/17 4:07 AM) BUN [7-22 mg/dL] 22 mg/dL (04/02/17 4:07 AM) Glucose Lvl [70-99 94 mg/dL mg/dL] (04/02/17 4:07 AM) Calcium Lvl 9.3 mg/dL [8.5-10.5 mg/dL] (04/02/17 4:07 AM) 1Result Comment: The eGFR is calculated using [...] be mul tiplied by the estimated BMI. HEMATOLOGY Most recent to 1 oldest [Reference Range]: WBC [3.7-10.4 K/CMM] 8.8 K/CMM (04/02/17 4:07 AM) RBC [4.20-5.40 4.54 M/CMM M/CMM] (04/02/17 4:07 AM) Hgb [12.0-16.0 g/dL] 13.1 g/dL (04/02/17:07 AM) Hct [36.0-48.0 %] 38.7 % (04/02/17:07 AM) MCV [80.0-98.0 fL] 85.2 fL (04/02/17:07 AM) MCH [27.0-31.0 pg] 28.7 pg (04/02/17:07 AM) MCHC [32.0-36.0 33.8 g/dL g/dL] (04/02/17 4:07 AM) RDW [11.5-14.5 %] 13.0 % (04/02/17 4:07 AM) Platelet [133-450 288 K/CMM K/CMM] (04/02/17 4:07 AM) MPV [7.4-10.4 fL] 8.0 fL (04/02/17 4:07 AM) Segs [45.0-75.0 %] 51.4 % (04/02/17 4:07 AM) Lymphocytes 34.2 % [20.0-40.0 %] (04/02/17 4:07 AM) Monocytes [2.0-12.0 8.8 % %] (04/02/17 4:07 AM) Eosinophils [0.0-4.0 4.8 % %] *HI* (04/02/17 4:07 AM) Basophils [0.0-1.0 0.8 % %] (04/02/17 4:07 AM) Segs-Bands # 4.5 K/CMM [1.5-8.1 K/CMM] (04/02/17 4:07 AM) Lymphocytes # 3.0 K/CMM [1.0-5.5 K/CMM] (04/02/17 4:07 AM) Monocytes # [0.0-0.8 0.8 K/CMM K/CMM] (04/02/17 4:07 AM) Eosinophils # 0.4 K/CMM [0.0-0.5 K/CMM] (04/02/17 4:07 AM) Basophils # [0.0-0.2 0.1 K/CMM K/CMM] (04/02/17 4:07 AM) Immunizations Not Given Vaccine Date Status Refusal [...] special events (weddings, etc) Assessment and Plan Extracted from: Title: Ophthalmology Consult Note Author: Lucila Moreira Date: 04/02/17 CONSULTATION OPHTHALMOLOGY PATIENT NAME: Misha Chadwick MR #: [id number] ROOM: [facility] REQUESTING TEAM/ATTENDING: ED DATE OF CONSULT: 04/02/2017 CONSULTING ATTENDING: Teresa Wilkes MD PhD CONSULTING RESIDENT: Lucila Moreira MD REASON FOR CONSULT: CHART REVIEWED: YES HISTORY OF PRESENT ILLNESS: 22 yo F, hx of dysautonomia, non-epileptic seizures, posterior fossa arachnoid cyst (dx 02/2017), presents to ED c/o acute onset "whole body numbness/tingling" associated with generalized weakness and bilateral blurry vision since 04/01 8pm. She reports one brief episode of bilateral blurry vision 03/31, but that incident resolved without intervention. She denies diplopia, flashers, floaters. Reports no eye pain. REVIEW OF SYSTEMS: CONSTITUTIONAL: No fever, weight changes. MUSCULOSKELETAL: No generalized pain. SKIN: No rash. EYES: As above. ENT: No rhinorrhea RESPIRATORY: No SOB. CARDIOVASCULAR: No chest pain. GASTROINTESTINAL: No nausea, vomiting, diarrhea. HEMATOPOETIC/LYMPHATIC: No bruising, LAD. GENITOURINARY: No change in UOP. NEUROLOGICAL: No headache. PSYCHIATRIC: No behavioral change. ALLERGY/IMMUNE SYSTEM: No allergies. PAST OCULAR HISTORY: Refractive Error PAST MEDICAL HISTORY: Per HPI PAST SURGICAL HISTORY: No ocular surgeries. SOCIAL HISTORY: No tobacco/EtOH/drug use. FAMILY HISTORY: No ocular disease. ALLERGIES: Dexamethasone, Keflex MEDICATIONS: Per MAR Summary EYE MEDICATION: None. EXAMINATION: Neuro/MS: The patient is alert and oriented to person, place and time. The mental status is grossly normal. VISUAL ACUITY (WITH CORRECTION): TESTED ON A NEAR CARD. Right eye: 20/100 PH ->20/50 - Poor Effort* Left eye: 20/100 PH ->20/50 - Poor Effort* COLOR VISION: Right: patient reported not seeing any card, even the control card Left: patient reported not seeing any card, even the control card EXTRAOCULAR MOTILITY: Full both eyes. Orthophoric in primary gaze. CONFRONTATION VISUAL FIELD: Full both eyes. PUPILS: Right: 4 mm with 3+ direct and consensual response. No relative afferent pupillary defect noted. Left: 4 mm with 3+ direct and consensual response. No relative afferent pupillary defect noted INTRAOCULAR PRESSURE: Symmetric and normal to palpation both eyes. Right eye 17, left eye 17 using the Tonopen. EXTERNAL: Within normal limits both eyes. ANTERIOR SEGMENT EXAM WITH PENLIGHT: LIDS/LASHES/LACRIMALS: Right: Artifical eyelashes in place Left: Artifical eyelashes in place CONJUNCTIVA/SCLERA: Right: White and quiet Left: White and quiet CORNEA: Right: Clear. Left: Clear ANTERIOR CHAMBER: Right: Formed and grossly clear Left: Formed and grossly clear IRIS: Right: Round and reactive Left: Round and reactive LENS: Right: Clear Left: Clear DILATED FUNDUS EXAM: (Both eyes dilated with phenylephrine 2.5% and tropicamide 1% @ 0648) Right: OPTIC NERVE: pink, healthy nerve, no disc edema C:D RATIO: 0.2 POSTERIOR SEGMENT: macula, vessels, periphery within normal limits Left: OPTIC NERVE: pink, healthy nerv, no disc edema C:D RATIO: 0.2 POSTERIOR SEGMENT: macula, vessels, periphery within normal limits IMAGING: CT HEAD FINDINGS: There is no edema, hemorrhage, midline shift, hydrocephalus or other acute intracranial abnormality. Unchanged, mild prominence of CSF space at the left cerebellopontine angle corresponding with previously seen arachnoid cyst. There is no fracture of the skull, skull base, or visible facial bones. IMPRESSION: No acute intracranial abnormality or significant change compared to 09/11/2016. DIAGNOSES/RECOMMENDATION: 1. Blurry Vision, both eyes - normal healthy ocular structures - no disc edema - artifical tears as needed for comfort QID Patient instructed to call for an appointment to follow up with Dr. Teresa Wilkes at the [facility] in 1-2 weeks as needed (Located: [address] [place] [address], 18 th floor; Appt #: [phone]) Please reconsult if any changes develop. Thank you for the consult. Lucila Moreira MD [facility] Ophthalmology PGY3 Ophthalmology Attending Note: I have discussed the patient with the resident and have reviewed the note. I agree with the assessment and plan as documented No acute abnormality on exam. Refractive error likely present. F/u as outpt.. Teresa Wilkes MD, PhD
--- OUTSIDE RECORDS SUMMARY | 2018-06-28 18:07 | XMS REPORT | Summary of Care ---
Author Author [facility] Organization [facility] Address Unknown Phone Unavailable Encounter HQ Karri_kristin(FIN) [id number] Date(s): 06/27/17 - 06/27/17 [facility] [address] [place] [address]- Discharge Disposition: Home or Self Care Attending Physician: Margo Newby MD Referring Physician: Margo Newby MD Vital Signs No data available for this section Problem List Condition Effective Dates Status Health Status Informant Anxiety(Confirmed) Resolved Headache(Confirmed) 2013 Resolved Seizure(Confirmed) 08/10/16 Active Allergies, Adverse Reactions, Alerts Substance Reaction Severity Status dexamethasone Active Keflex Rash Active Medications No data available for this section Results CHEM PANEL Most recent to 1 oldest [Reference Range]: eGFR 132 mL/min/1.73m2 1 *NA* (06/27/17 4:27 PM) POC Creatinine 0.6 mg/dL [0.5-1.4 mg/dL] (06/27/17 4:27 PM) 1Result Comment: The eGFR is calculated [...] be mul tiplied by the estimated BMI. Immunizations Not Given Vaccine Date Status Refusal [...]
--- OUTSIDE RECORDS SUMMARY | 2018-06-28 18:07 | XMS REPORT | Summary of Care ---
Author Author [facility] Organization [facility] Address Unknown Phone Unavailable Encounter HQ Nelson(CHELSEA) [id number] Date(s): 01/23/17 - 01/23/17 [facility] [address] Professional Services provided by [employer] [place] [address]- Discharge Disposition: Home or Self Care Attending Physician: Patricia Watt MD Referring Physician: Patricia Watt MD Vital Signs Most recent to 1 oldest [Reference Range]: Height 147.32 cm (01/23/17 7:57 AM) Weight 52.273 kg (01/23/17 7:57 AM) Body Mass Index 24.09 m2 (01/23/17 7:57 AM) Problem List Condition Effective Dates Status Health Status Informant Anxiety(Confirmed) Resolved Headache(Confirmed) 2013 Resolved Seizure(Confirmed) 08/10/16 Active Allergies, Adverse Reactions, Alerts Substance Reaction Severity Status Keflex Rash Active Medications No data available [...]
--- OUTSIDE RECORDS SUMMARY | 2018-06-28 18:07 | XMS REPORT | Summary of Care ---
Author Author [facility] Outpatient Imaging [place] Organization [facility] Outpatient [facility] [place] Address Unknown Phone Unavailable Encounter HQ Zayntr_kristin(FIN) [id number] Date(s): 03/12/17 - 03/12/17 [facility] Outpatient Imaging [place] [address] [place] [phone] Discharge Disposition: Home or Self Care Attending [...]
--- OUTSIDE RECORDS SUMMARY | 2018-06-28 18:07 | XMS REPORT | Summary of Care ---
Author Author [facility] Outpatient Imaging [facility] Outpatient Imaging [facility] Address Unknown Phone Unavailable Encounter HQ Zayntr_kristin(FIN) [id number] Date(s): 08/10/17 - 08/10/17 [facility] Outpatient Imaging [facility] [address] [facility], [address] [place] [phone] Encounter Diagnosis Encounter for supervision of normal , unspecified, first trimester (Final) - 08/15/17 Discharge Disposition: Home or Self Care Attending Physician: Jacile Wyatt MD Vital Signs No data available for [...]
--- OUTSIDE RECORDS SUMMARY | 2018-06-28 18:08 | XMS REPORT | Encounter Summary ---
Author Organization Unknown Address [address] [place] [address] Phone [phone] Reason for Visit Physical Exam Instructions 1. Adult health examination Discussion Note: None recorded. Patient educational handouts: No information available. Plan of Care Reminders Provider Appointments None recorded. Lab None recorded. Referral None recorded. Procedures None recorded. Surgeries None recorded. Imaging None recorded. Medications Name Start Date fludrocortisone 0.1 mg tablet Take 1 tablet twice a day by oral route. levetiracetam 250 mg tablet Nexplanon 68 mg subdermal implant propranolol ER 60 mg capsule,24 hr,extended release Medications Administered None recorded. Vitals Height Weight BMI Blood Pressure 4 ft 10 in 117 lbs 24.5 kg/m2 (1) 112/64 mm[Hg] (2) 114/62 mm[Hg] Lab Results None recorded. Allergies Code Code System Name Reaction Severity Status Onset 151649 RxNorm Decadron Rash Severe Active 442166 RxNorm Keflex Active Problems Name Status Onset Date Source Urinary Symptoms Active 12/10/2017 Procedures Date Name Performed by Endometrial Cryoablation Information not available Removal of Tonsils Information not available Vaccine List Vaccine Type influenza, unspecified formulation 10/28/2017 meningococcal, unspecified formulation 07/30/2015 Tdap 07/30/2009 Social History Smoking Status Never Smoker Past Encounters 01/19/2018 Adult Health Examination Shanita London PA-C: [address] [place] [address], Ph. History of Present Illness Physical Request Reported By: Patient HPI: Physical Examination Request No medical complaints Review of Systems:ROS as noted in the HPI Review of Systems Basic Reported By: Patient Constitutional: Constitutional: no fever Eyes: Eyes: no eye complaints Qwjw-Vdmk-Dfhjb-Throat: Ears: no ear complaints. Nose: nose/sinus problems Cardiovascular: Cardiovascular: no chest pain, no shortness of breath, no known heart murmur Respiratory: Respiratory: no cough, no wheezing, no shortness of breath Gastrointestinal: Gastrointestinal: no abdominal pain, no vomiting / diarrhea Genitourinary: Genitourinary: no urinary complaints, no discharge Musculoskeletal: Musculoskeletal: no muscle aches, no muscle weakness, no arthralgias/joint pain, no back pain Skin: Skin: no rashes Neurologic: Neurologic: no loss of consciousness, no weakness, no numbness, no seizures, no dizziness, headache Physical Exam Adult Female Complete Reported By: Patient Constitutional: General Appearance: healthy-appearing, well-nourished, well-developed. Level of Distress: NAD. Ambulation: ambulating normally Psychiatric: Mental Status: active and alert. Orientation: to time, to place, to person Eyes: Lids and Conjunctivae: non-injected, no discharge. Pupils: PERRLA. Corneas: grossly intact. EOM: EOMI. Lens: clear. Sclerae: non-icteric. Vision: acuity grossly intact, distance acuity: right, uncorrected: 20/, distance acuity: left, with correction: 20/20, distance acuity: right, with correction: 20/252; wearing glasses Gge-Vjll-Bcepd-Throat: Ears: no lesions on external ear, no outer ear tenderness, EACs clear, TMs clear. Hearing: no hearing loss. Nose: no lesions on external nose, nares patent, no septal deviation, nasal passages clear, no sinus tenderness, no nasal discharge. Lips, Teeth, and Gums: no mouth or lip ulcers, no bleeding gums, normal dentition. Oropharynx: moist mucous membranes, no erythema, no exudates, tonsils not enlarged Neck: Neck: supple, trachea midline, no masses, FROM. Lymph Nodes: no cervical LAD, no supraclavicular LAD, no inguinal LAD. Thyroid: no enlargement, non- tender, no nodules Lungs: Respiratory effort: no dyspnea. Auscultation: breath sounds normal Cardiovascular: Heart Auscultation: RRR, no murmurs Abdomen: Bowel Sounds: normal. Inspection and Palpation: soft, non-distended, no tenderness, no guarding, no masses. Liver: non-tender, no hepatomegaly. Spleen: non-tender, no splenomegaly Musculoskeletal:: Motor Strength and Tone: normal motor strength, normal tone. Joints, Bones, and Muscles: normal movement of all extremities, no bony abnormalities, no contractures, no tenderness. Extremities: no cyanosis, no edema Neurologic: Gait and Station: normal gait, normal station. Cranial Nerves: grossly intact. Sensation: grossly intact. Reflexes: DTRs 2+ bilaterally throughout Skin: Inspection and palpation: no rash, no lesions. Nails: normal Back: Thoracolumbar Appearance: normal curvature
--- OUTSIDE RECORDS SUMMARY | 2018-06-28 18:08 | XMS REPORT ---
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 Allergies, Adverse Reactions, Alerts Allergy Name Allergy Type Status Severity Reaction(s) Onset Date Inactive Date Treating Clinician Comments dexamethasone DA Active SV 2018-05-07 00:00:00 cephalexin DA Active U 2018-05-07 00:00:00 pine nut DA Active SV 2018-05-07 00:00:00 pecan nut DA Active SV 2018-05-07 00:00:00 dexamethasone DA Active SV 2018-01-31 00:00:00 cephalexin DA Active U 2018-01-31 00:00:00 pine nut DA Active SV 2018-01-31 00:00:00 pecan nut DA Active SV 2018-01-31 00:00:00 Medications This patient has no known medications.
--- OUTSIDE RECORDS SUMMARY | 2018-06-28 18:08 | XMS REPORT | Encounter Summary ---
Author Organization Unknown Address [address] [place] [address] Phone [phone] Reason for Visit Screening - Lab Instructions 1. High antibody titer hepatitis C Ab, iukbll-cv-nesvng, serum or plasma Discussion Note Pt is aaox3 and in NAD; verbalizes understanding of all instructions and has no further questions at this time Patient educational handouts: No information available. Plan of Care Patient Instructions . Follow up with PCP as needed. Reminders Provider Appointments None recorded. Lab Hepatitis C Ab, Xwhfab-lk-qflgvl, Serum or Plasma 11/14/2017 [facility] Referral None recorded. Procedures None recorded. Surgeries None recorded. Imaging None recorded. Medications Name Start Date Zyrtec Medications Administered None recorded. Vitals None recorded. Lab Results None recorded. Allergies Code Code System Name Reaction Severity Status Onset 20310103 RxNorm Keflex Active Problems None recorded. Procedures Date Name Performed by Removal of Tonsils Information not available Vaccine List None recorded. Social History None recorded. Past Encounters 11/14/2017 High Antibody Titer DOLORES Shipley-C: [address], [place] [address], Ph. History of Present Illness Lab Request Reported By: Patient HPI: Lab Request (normal) no symptoms Review of Systems Basic Reported By: Patient Physical Exam Adult Basic Reported By: Patient
--- OUTSIDE RECORDS SUMMARY | 2018-06-28 18:08 | XMS REPORT | Encounter Summary ---
Author Organization Unknown Address [address] [place] [address] Phone [phone] Reason for Visit Medical Complaint Instructions 1. Acute bronchitis bronchitis: care instructions prednisone 20 mg tablet azithromycin 250 mg tablet Bromfed DM 2 mg-30 mg-10 mg/5 mL syrup Discussion Note: None recorded. Plan of Care Patient Instructions Take medication as directed. If symptoms worsen or do not improve follow up with your PCP. Drink plenty of fluids and rest. Reminders Provider Appointments None recorded. Lab None recorded. Referral None recorded. Procedures None recorded. Surgeries None recorded. Imaging None recorded. Medications Name Start Date azithromycin 250 mg tablet TAKE 2 TABLETS (500 MG) BY ORAL ROUTE ONCE DAILY FOR 1 DAY THEN 1 TABLET (250 MG) BY ORAL ROUTE ONCE DAILY FOR 4 DAYS Bromfed DM 2 mg-30 mg-10 mg/5 mL syrup Take 10 mL every 6 hours by oral route as needed. epinephrine 0.3 mg/0.3 mL injection, auto-injector fludrocortisone 0.1 mg tablet Take 1 tablet twice a day by oral route. levetiracetam 250 mg tablet Nexplanon 68 mg subdermal implant norethindrone 1 mg-e. estradiol 20 mcg (24)-iron 75 mg (4) chew tablet TROMMEL TENDER 1 T PO QD ondansetron HCl 4 mg tablet prednisone 20 mg tablet Take 1 tablet twice a day by oral route with meals for 5 days. propranolol ER 60 mg capsule,24 hr,extended release TK 1 C PO D tamsulosin 0.4 mg capsule tramadol 50 mg tablet Medications Administered None recorded. Vitals Height Weight BMI Blood Pressure 4 ft 10 in 117 lbs 24.5 kg/m2 116/72 mm[Hg] Lab Results None recorded. Allergies Code Code System Name Reaction Severity Status Onset 320891 RxNorm Decadron Rash Severe Active 713126 RxNorm Keflex Active Problems Name Status Onset Date Source Urinary Symptoms Active 12/10/2017 Procedures Date Name Performed by Endometrial Cryoablation Information not available Removal of Tonsils Information not available Vaccine List Vaccine Type influenza, unspecified formulation 10/28/2017 meningococcal, unspecified formulation 07/30/2015 Tdap 07/30/2009 Social History Smoking Status Never Smoker Past Encounters 04/29/2018 Acute Bronchitis Leonela Pedraza, [facility] [address] [facility] [place] [address], Ph. History of Present Illness Rwobyjg-Myqmd-Kwh Reported By: Patient HPI: Quality: cannot identify. Duration: 1 days. Severity: subjective temperature. Context: no tick/insect bites, no recent travel, no new medications, ill contacts. Associated Symptoms: no headache, no rash, no lethargy, fever/chills, muscle aches, cough, nasal passage blockage (stuffiness), nasal discharge. Modifying Factors OTC medication Notes: hx of bronchitis (has inhaler and breathing tx at home) Review of Systems Basic Reported By: Patient Constitutional: Constitutional: fever Jdtf-Rmyd-Qqwhs-Throat: Ears: no ear complaints. Nose: nose/sinus problems. Mouth/Throat: no sore throat Respiratory: Respiratory: cough, wheezing, shortness of breath Musculoskeletal: Musculoskeletal: no muscle aches, no muscle weakness, no arthralgias/joint pain Neurologic: Neurologic: no headaches Physical Exam Adult Basic, Adult Female Complete, 14-21 Yr Females Reported By: Patient Constitutional: General Appearance: healthy-appearing, well-nourished, well-developed. Level of Distress: NAD. Ambulation: ambulating normally Psychiatric: Mental Status: active and alert, normal affect, normal mood. Orientation: to time, to place, to person Eyes: Lids and Conjunctivae: non-injected, no discharge, no pallor. Pupils: PERRLA Nro-Mhaf-Jempc-Throat: Ears: no lesions on external ear, no outer ear tenderness, EACs clear, TMs clear. Hearing: no hearing loss. Nose: no lesions on external nose, no sinus tenderness, no nasal discharge, nares non-patent. Lips, Teeth, and Gums: no mouth or lip ulcers. Oropharynx: moist mucous membranes, no erythema Neck: Neck: supple. Lymph Nodes: no cervical LAD Lungs: Respiratory effort: no dyspnea. Auscultation: decreased breath sounds Cardiovascular: Heart Auscultation: RRR. Neck vessels: no carotid bruits. Pulses including femoral / pedal: normal throughout. Apical impulse: not displaced. Rate and rhythm: regular Skin: Inspection and palpation: no rash
--- OUTSIDE RECORDS SUMMARY | 2018-06-28 18:08 | XMS REPORT | Encounter Summary ---
Author Organization Unknown Address [address] [place] [address] Phone [phone] Reason for Visit Screening - TB Instructions 1. Tuberculosis screening Tubersol 5 tub. unit/0.1 mL intradermal injection solution PPD (purified protein derivative), skin test Discussion Note: None recorded. Patient educational handouts: No information available. Plan of Care Reminders Provider Appointments None recorded. Lab PPD (Purified Protein Derivative), Skin Test 05/09/2018 [facility] Referral None recorded. Procedures None recorded. Surgeries None recorded. Imaging None recorded. Medications Name Start Date alqnaldtsujocrp-xbifscohkzigxdn-JO 2 mg-30 mg-10 mg/5 mL syrup Take 10 mL every 6 hours by oral route as needed. epinephrine 0.3 mg/0.3 mL injection, auto-injector fludrocortisone 0.1 mg tablet Take 1 tablet twice a day by oral route. levetiracetam 250 mg tablet levetiracetam 750 mg tablet Nexplanon 68 mg subdermal implant norethindrone 1 mg-e. estradiol 20 mcg (24)-iron 75 mg (4) chew tablet SLP 1 T PO QD ondansetron HCl 4 mg tablet prednisone 20 mg tablet Take 1 tablet twice a day by oral route with meals for 5 days. propranolol ER 60 mg capsule,24 hr,extended release TK 1 C PO D tamsulosin 0.4 mg capsule tramadol 50 mg tablet Tubersol 5 tub. unit/0.1 mL intradermal injection solution Inject 0.1 mL by intradermal route. Medications Administered Name Date Tubersol 5 tub. unit/0.1 mL intradermal injection solution Inject 0.1 mL by intradermal route. [id number]:28:21 Vitals None recorded. Lab Results Date Name Specimen Result Interpretation Description Value Range Status Address Rapid Flu (A+B) Influenza a negative [facility]: [address] [place] [address] Influenza B negative [facility]: [facility] Allergies Code Code System Name Reaction Severity Status Onset 149896 RxNorm Decadron Rash Severe Active 320237 RxNorm Keflex Active Problems Name Status Onset Date Source Tuberculosis Screening Active 05/09/2018 Procedures Date Name Performed by Endometrial Cryoablation Information not available Removal of Tonsils Information not available Vaccine List Vaccine Type influenza, unspecified formulation 10/28/2017 meningococcal, unspecified formulation 07/30/2015 Tdap 07/30/2009 Social History Smoking Status Never Smoker Past Encounters 05/09/2018 Tuberculosis Screening DOLORES Maya-C: [address] [place] [address], Ph. 04/29/2018 Acute Bronchitis DOLORES Landers: [address] [place] [address], Ph. History of Present Illness Screening Request - TB Reported By: Patient Screening Request: BCG No prior BCG vaccination. PPD No past history of postive TB skin test (PPD), No previous severe local reaction to TB skin test (PPD). OTHER No prior vaccines within last month Review of Systems Screening - TB Reported By: Patient Symptoms during past year > 2 weeks, NOT associated with specific illness?: unexplained or low grade fever No fever. night sweats No night sweats. unexplained weight loss > 5 lbs No unexplained weight loss. persistent cough No persistent cough. shortness of breath No shortness of breath. coughing up blood (hemoptysis) No coughing up blood (hemoptysis). unusual fatigue No unusual fatigue. loss of appetite No loss of appetite. swollen neck glands No swollen neck glands Physical Exam Screening Reported By: Patient General Appearance: General: well-developed, well-nourished, no acute distress
--- OUTSIDE RECORDS SUMMARY | 2018-06-28 18:08 | XMS REPORT | Summary of Care ---
Author Author [facility] Organization [facility] Address Unknown Phone Unavailable Encounter HQ Karri_kristin(FIN) [id number] Date(s): 10/25/17 - 10/25/17 [facility] [address] [place] [address]- Encounter Diagnosis Acute bronchitis due to other specified organisms (Final) - 11/01/17 Discharge Disposition: Home or Self Care Attending Physician: JERRI BAPTISTE Vital Signs No data available for this [...]
--- OUTSIDE RECORDS SUMMARY | 2018-06-28 18:08 | XMS REPORT | Summary of Care ---
Author Author [facility] [place] Address Unknown Phone Unavailable Encounter HQ Nelson(FIN) [id number] Date(s): 11/28/17 - 11/28/17 [facility] Outpatient Imaging [place] [address] [place] [phone] Encounter Diagnosis Migraine, unspecified, not intractable, without status migrainosus (Final) - Cerebral cysts (Final) - Unspecified convulsions (Final) - Discharge Disposition: Home or Self Care Attending [...]
--- OUTSIDE RECORDS SUMMARY | 2018-06-28 18:08 | XMS REPORT | Encounter Summary ---
Author Organization Unknown Address [address] [place] [address] Phone [phone] Reason for Visit Medical Complaint Instructions 1. Acute bronchitis bronchitis: care instructions prednisone 20 mg tablet azithromycin 250 mg tablet Bromfed DM 2 mg-30 mg-10 mg/5 mL syrup rapid flu (A+B) Discussion Note: None recorded. Plan of Care Patient Instructions Take medication as directed. If symptoms worsen or do not improve follow up with your PCP. Drink plenty of fluids and rest. Reminders Provider Appointments None recorded. Lab Rapid Flu (A+B) 04/29/2018 [facility] Referral None recorded. Procedures None [...] mcg (24)-iron 75 mg (4) chew tablet PHOTOCOPY OPERATOR 1 T PO QD ondansetron HCl 4 [...] lbs 24.5 kg/m2 116/72 mm[Hg] Lab Results Date Name Specimen Result Interpretation Description Value Range Status Address Rapid Flu (A+B) Influenza a negative [facility]: [address] [place] [address] Influenza B negative [facility]: [address] [place] [address] Allergies Code Code System Name Reaction Severity Status Onset 539228 RxNorm Decadron Rash Severe Active 136721 RxNorm Keflex Active Problems Name Status Onset Date Source Urinary Symptoms Active 12/10/2017 Procedures Date Name Performed by Endometrial Cryoablation Information not available Removal of Tonsils Information not available Vaccine List Vaccine Type influenza, unspecified formulation 10/28/2017 meningococcal, unspecified formulation 07/30/2015 Tdap 07/30/2009 Social History Smoking Status Never Smoker Past Encounters 04/29/2018 Acute Bronchitis Leonelaamauri Pedraza, SKIVER BLOCKERS: [address] [place] [address], Ph. History of Present Illness Dkydhyl-Kkfyh-Osv Reported By: Patient HPI: Quality: cannot identify. [...] Basic Reported By: Patient Constitutional: Constitutional: fever Oupp-Bplc-Ahrbh-Throat: Ears: no ear complaints. Nose: nose/sinus problems. [...] non-injected, no discharge, no pallor. Pupils: PERRLA Aij-Fesh-Dyikx-Throat: Ears: no lesions on external ear, no [...]
--- OUTSIDE RECORDS SUMMARY | 2018-06-28 18:08 | XMS REPORT | Summary of Care ---
Author Author YOGESH Miller, NELI Organization Unknown Address Unknown Phone Unavailable Care Team Providers Care Licensed Direct Entry Midwife Name Role Phone LEOBARDO Miller, RODOLFOAMMED Unavailable Unavailable YOGESH Miller, NELI Unavailable Unavailable LAYA Miller, MASUMEH Unavailable Unavailable EMILE BOOTH UT, JERRI Unavailable Unavailable YOGESH CANTU UT, NELI Unavailable Unavailable EMILE P.A., JERRI Unavailable Unavailable Unavailable Unavailable Functional Status Name Dates Details Functional status health issues are not documented Status: Name Dates Details Cognitive status health issues are not documented Status: Problems Name Dates Details 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, 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 Thrombocytosis (238.71, D47.3) Status: Active Allergic rhinitis (477.9, J30.9) Status: Active Status post fall (V15.88, Z91.81) Status: Active Urinary tract infection, acute (599.0, N39.0) Status: Active Influenza A (487.1, J10.1) Status: Active Bacterial upper respiratory infection (465.9, J06.9) Status: Active Transient tics (307.20, F95.0) Status: Active Dizziness (780.4, R42) Status: Active Headache (784.0, R51) Status: Active Syncope and collapse (780.2, R55) Status: Active Acute bacterial pharyngitis (462, J02.8) Status: Active Adjustment disorder with mixed anxiety and depressed mood (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, 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) Status: Active Immunity status testing (V72.61, Z01.84) Status: Active Tuberculosis screening (V74.1, Z11.1) Status: Active Cervical radiculopathy (723.4, M54.12) Status: Active Vision loss, 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, 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 Amenorrhea (626.0, N91.2) Status: Active (V22.2, Z34.90) Status: Active Vaginal discharge in (646.80, O26.899) Status: Active Vaginal discharge during in first trimester (646.83, O26.891) Status: Active Abdominal cramping, gestational (646.80, O26.899) Status: Active Endometriosis (617.9, N80.9) Status: Active Influenza (487.1, J11.1) Status: Active Nausea and vomiting (787.01, R11.2) Status: Active Atypical chest pain (786.59, R07.89) Status: Active Dyspnea on exertion (786.09, R06.09) Status: Active Orthopnea (786.02, R06.01) Status: Active Fever (780.60, R50.9) Status: Active Acute bacterial bronchitis (466.0, J20.8) Status: Active Tachypnea (786.06, R06.82) Status: Active Weakness of left side of body (728.87, R53.1) Status: Active Sensory loss (782.0, R20.0) Status: Active 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 * Start : 07-Mar-2018 Active LevETIRAcetam 250 MG Oral Tablet TAKE 1 TABLET BY MOUTH TWICE DAILY FOR 2 WEEKS, THEN INCREASE TO 2 TABLETS BY MO UT TWICE DAILY DIRECTED * Quantity: 120 Refills: 0 NELI ZUÑIGA M.D. * Start : 22-May-2018 Active Propranolol HCl - 60 MG Oral Tablet 1 tab qd * Refills: 0 Active LevETIRAcetam 250 MG Oral Tablet 3 tabs in the morning and 2 tabs in the evening * Quantity: 150 Refills: 5 LAYA MillerINGRID * Start : 29-Nov-2017 Active Norethin Filemon-Eth Estrad-FE 1-20 MG-MCG(24) Oral Tablet Chewable * Refills: 0 * Start : 15-Mar-2018 Active 28 Tablet Pack Propranolol HCl ER 80 MG Oral Capsule Extended Release 24 Hour TAKE 1 CAPSULE BY MOUTH AT BEDTIME * Quantity: 30 Refills: 11 YOGESH MillerNELI * Start : 27-Jun-2018 Active Allergies and Adverse Reactions Name Dates Details Keflex TABS (Allergy) Reaction: Rash Status: Active Comments: Reaction Date:Unknown Procedures Procedure Dates Details Procedures not documented Immunization Name Dates Details PPD Lot #: [id number] on: 06-Oct-2015 Tubersol 5 UNIT/0.1ML Intradermal Solution Lot #: [id number] on: 07-Feb-2017 Fluzone Quadrivalent 0.5 ML Intramuscular Suspension Lot #: [id number] on: 12-Nov-2017 Family History Name Dates Details Family history of malignant neoplasm of brain (V16.8, Z80.8) Status: Active Name Dates Details Family history of hypertension (V17.49, Z82.49) Status: Active Social History Name Dates Details - Status: Name Dates Details Never smoker Vital Signs Date Test Result Details [id number]:04 BP Systolic 146 mm[Hg] Status: Comments: Location: LUE; Position: Sitting BP Diastolic 97 mm[Hg] Status: Comments: Location: LUE; Position: Sitting Height 58 in Status: Weight 127 lb Status: Body Mass Index Calculated 26.54 kg/m2 Status: Body Surface Area Calculated 1.5 m2 Status: Temperature 97.6 f Status: Comments: Method: Temporal Heart Rate 120 /min Status: Respiration Rate 14 /min Status: Results Date Description Value Details Results not documented Plan of Care Name Dates Details Planned Observations Planned Goals not documented Interventions Provided Medication Changes* Propranolol HCl ER 80 MG Oral Capsule Extended Release 24 Hour - Start Plan* 1. RTC in 3 months. * 2. Continue Levetiracetam 750 bid, fludrocortisone and propranolol * 3. Compression stockings * 4.Consider a CTA for steal syndrome if the pain is not responsive to BB Discussion/Summary* Ms. Chadwick is doing much better, her weakness and focal left-sided symptoms have improved on Keppra but she still refers that feeling of LUE heaviness. Unclear what adherence level she has with Keppra as her levels were low last time. Her exam is normal other than brisk bilateral reflexes. If she continues stable on the Keppra, we will consider an EMU stay with sleep deprivation and alcohol. NV has been ruled our and one possibility is that the chest pain and dyspnea are associated with increased afterload in the setting of tachycardia with reduced cardiac output. The propranolol should assist in that regard. A thoracic outlet syndrome would be unlikely as she cannot consistently reproduce it. Instructions Name Dates Details Instructions not documented Encounters Appointment; JERRI BAPTISTE P.A. Encounter Diagnosis: Problem not documented On: 11-Aug-2016 10:45 Appointment; JELLY CABRERA M.D. Encounter Diagnosis: Problem not documented On: 11-Oct-2016 14:00 Appointment; JAY JAY PERRY NP Encounter Diagnosis: Problem not documented On: 16-Oct-2016 18:30 Appointment; JERRI BAPTISTE P.A. Encounter Diagnosis: Problem not documented On: 05-Dec-2016 9:00 Appointment; NELI ZUÑIGA M.D. Encounter Diagnosis: Problem not documented On: 08-Dec-2016 13:00 Appointment; JERRI BAPTISTE P.A. Encounter Diagnosis: Problem not documented On: 11-Dec-2016 14:45 Appointment; CATERINA COUCH LCSW Encounter Diagnosis: Problem not documented On: 11-Jan-2017 9:00 Appointment; CATERINA COUCH LCSW Encounter Diagnosis: Problem not documented On: 07-Feb-2017 10:00 Appointment; JAY JAY PERRY NP Encounter Diagnosis: Problem not documented On: 07-Feb-2017 11:45 Appointment; CATERINA COUCH LCSW Encounter Diagnosis: Problem not documented On: 27-Feb-2017 10:00 Appointment; NELI ZUÑIGA M.D. Encounter Diagnosis: Problem not documented On: 01-Mar-2017 9:00 Appointment; NELI ZUÑIGA M.D. Encounter Diagnosis: Problem not documented On: 01-Jun-2017 8:30 Appointment; NELI ZUÑIGA M.D. Encounter Diagnosis: Problem not documented On: 04-Jun-2017 14:30 Appointment; JERRI BAPTISTE P.A. Encounter Diagnosis: Problem not documented On: 09-Aug-2017 8:45 Appointment; NELI ZUÑIGA M.D. Encounter Diagnosis: Problem not documented On: 16-Aug-2017 9:00 Appointment; JERRI BAPTISTE P.A. Encounter Diagnosis: Problem not documented On: 03-Sep-2017 10:00 Appointment; MARIBEL JANE P.A. Encounter Diagnosis: Problem not documented On: 05-Sep-2017 10:30 Appointment; JERRI BAPTISTE P.A. Encounter Diagnosis: Problem not documented On: 24-Oct-2017 8:30 Appointment; JERRI BAPTISTE P.A. Encounter Diagnosis: Problem not documented On: 25-Oct-2017 16:00 Appointment; JERRI BAPTISTE P.A. Encounter Diagnosis: Problem not documented On: 12-Nov-2017 15:00 Appointment; NELI ZUÑIGA M.D. Encounter Diagnosis: Problem not documented On: 29-Nov-2017 15:00 Appointment; NELI ZUÑIGA M.D. Encounter Diagnosis: Problem not documented On: 24-Jan-2018 14:30 Appointment; NELI ZUÑIGA M.D. Encounter Diagnosis: Problem not documented On: 15-Mar-2018 15:30 Appointment; MINDI AVILA M.D. Encounter Diagnosis: Problem not documented On: 19-Mar-2018 13:00 Appointment; JERRI BAPTISTE P.A. Encounter Diagnosis: Problem not documented On: 08-May-2018 8:30 Appointment; NELI ZUÑIGA M.D. Encounter Diagnosis: Problem not documented On: 27-Jun-2018 16:30
--- OUTSIDE RECORDS SUMMARY | 2018-06-28 18:08 | XMS REPORT | Encounter Summary ---
Author Organization Unknown Address [address] [place] [id number] Phone [phone] Reason for Visit Medical Complaint Instructions 1. Urinary symptoms urinalysis, dipstick culture, urine Macrobid 100 mg capsule Discussion Note Pt is in NAD; Verbalizes understanding of all instructions with no questions at this time. Patient educational handouts: No information available. Plan of Care Patient Instructions Recommend proper hydration and frequent urination. Avoid douching, Recommend urinating after sexual intercourse. Recommend wipe front to back after urinating. Avoid using tubs. Take medications as prescribed. Follow up with your PCP within 2-3 days if symptoms worsen as discussed. Reminders Provider Appointments None recorded. Lab Urinalysis, Dipstick 12/10/2017 [facility] Culture, Urine 12/10/2017 [facility] Referral None recorded. Procedures None recorded. Surgeries None recorded. Imaging None recorded. Medications Name Start Date fludrocortisone 0.1 mg tablet Take 1 tablet twice a day by oral route. levetiracetam 250 mg tablet Macrobid 100 mg capsule Take 1 capsule every 12 hours by oral route as directed for 5 days. Nexplanon 68 mg subdermal implant propranolol ER 60 mg capsule,24 hr,extended release Medications Administered None recorded. Vitals Height Weight BMI Blood Pressure 4 ft 10 in 117 lbs 24.5 kg/m2 118/70 mm[Hg] Lab Results Date Name Specimen Result Interpretation Description Value Range Status Address 11/14/2017 Hepatitis C Ab, [id number], Serum or Plasma BLOOD VENOUS Hep C Virus Ab 0.1 s/co ratio 0.0-0.9 s/co ratio Final [facility]: [id number], [place] Urinalysis, Dipstick Color : Yellow [facility]: [address] [place] [address] Clarity : Clear [facility]: [address] [place] [address] Leukocytes : Negative [facility]: [address] [place] [address] Nitrites : Negative [facility]: [address] [place] [address] Urobilinogen : Normal [facility]: [facility] Protein : Negative [facility]: [facility] Ph : 5.5 [facility]: [facility] Blood : Negative [facility]: [facility] Specific [place] : 1.020 [facility]: [facility] Ketones : Negative [facility]: 9 [facility] Bilirubin : Negative [facility]: 9 [facility] Glucose Negative [facility]: 9 [facility] Allergies Code Code System Name Reaction Severity Status Onset [id number] RxNorm Keflex Active Problems Name Status Onset Date Source Urinary Symptoms Active 12/10/2017 Procedures Date Name Performed by Endometrial Cryoablation Information not available Removal of Tonsils Information not available Vaccine List Vaccine Type influenza, unspecified formulation 10/28/2017 meningococcal, unspecified formulation 07/30/2015 Tdap 07/30/2009 Social History Smoking Status Never Smoker Past Encounters 12/10/2017 Urinary Symptoms Stephanie Esquivel, [employer]: [address] [place] [address], Ph. 11/14/2017 High Antibody Titer Zachery Hernandez [employer]: [address] [place] [address], Ph. History of Present Illness [id number] Reported By: Patient HPI: Location: urethra. Quality: pain, pressure, burning. Severity: worsening, moderate. Duration: constant. Onset/Timing: worse, gradual. Context: no known exposure to STD, no prior history of STDs, sexually active, LMP5-3-18, heterosexual, vaginal intercourse, wipes anterior to posterior, voids after intercourse. Modifying factors nothing makes it worse. Associated Symptoms: no fever/chills, no flank pain, no jaundice, no blood in the urine, no vaginal discharge, no blisters on genitals, no rash on genitals, no muscle aches, no headache, pain during urination, urgency, urinary frequency Review of Systems Basic Reported By: Patient Constitutional: Constitutional: no fever Eyes: Eyes: no eye complaints Ahhb-Smom-Stbce-Throat: Ears: no ear complaints. Nose: no nose/sinus problems. Mouth/Throat: no sore throat, no bleeding gums, no mouth complaints, no teeth problems Cardiovascular: Cardiovascular: no chest pain, no shortness of breath, no known heart murmur Respiratory: Respiratory: no cough, no wheezing, no shortness of breath Gastrointestinal: Gastrointestinal: no abdominal pain, no vomiting / diarrhea Genitourinary: Genitourinary: no discharge, dysuria, urinary urgency; urinary frequency Musculoskeletal: Musculoskeletal: no muscle aches, no muscle weakness, no arthralgias/joint pain, no back pain Skin: Skin: no abnormal / changing mole, no jaundice, no rashes Neurologic: Neurologic: no loss of consciousness, no weakness, no numbness, no seizures, no dizziness, no headaches Physical Exam Adult Basic, Adult Female Complete, 14-21 Yr Females Reported By: Patient Constitutional: General Appearance: healthy-appearing, well-nourished, well-developed. Level of Distress: NAD. Ambulation: ambulating normally Psychiatric: Mental Status: active and alert. Orientation: to time, to place, to person Eyes: Lids and Conjunctivae: non-injected, no pallor; no periorbital edema Neck: Neck: supple. Lymph Nodes: no cervical LAD Lungs: Respiratory effort: no dyspnea, no tachypnea, no use of accessory muscles, no intercostal retractions. Auscultation: breath sounds normal Cardiovascular: Heart Auscultation: RRR, no murmurs Musculoskeletal:: Extremities: no edema Neurologic: Gait and Station: normal gait Abdomen: Bowel Sounds: normal. Inspection and Palpation: soft, non-distended, no guarding, no rebound tenderness, no masses, no CVA tenderness, suprapubic tenderness. Hernia: none palpable
[2018-06-28] MEDS ORDERED: SODIUM CHLORIDE 0.9% 1000ML 1,000 ML IV STA (18:25)
[2018-06-28] MEDS ORDERED: LORAZEPAM INJ 2 MG/ML VIAL IV ONE (18:30)
[2018-06-28] MEDS ORDERED: ONDANSETRON HCL INJ 2 MG/ML VIAL IV STA (18:55)
[2018-06-28] MEDS ORDERED: METOPROLOL TARTRATE INJ 1 MG/ML VIAL IV ONE (19:30)
[2018-06-28 21:26] VITALS: BP 138/76
== END 2018-06-28 21:32 | disposition home or self-care (01) ==
LOC: FSED 18:04
DX: R55 Syncope and collapse (principal); R53.1 Weakness; I49.8 Other specified cardiac arrhythmias; R00.0 Tachycardia, unspecified; G90.1 Familial dysautonomia [Riley-Day]; G40.909 Epilepsy, unspecified, not intractable, without status epilepticus
CPT/HCPCS: 80053; 85025; 93005; 99284; J2060; J2405; J7030